=== PATIENT | male | born 1940 | race Caucasian/White ===

== ENCOUNTER 2018-08-30 08:02 | Day surgery (SDC) | payer MEDICARE, BC ==
[2018-08-30] VITALS (11 sets, daily range): BP systolic 117–137; BP diastolic 67–88; PULSE 60–82; TEMP 97.1–97.7
[~2018-08-30] VITALS: Ht 185.5 cm; Wt 92.2 kg
[~2018-08-30 08:02] MED LIST: CEPHALEXIN500 M1 PO; ELIQUIS 2.5 PO; ELIQUIS 5MG PO; FLOMAX 0.40.4 MG/CAP PO
[2018-08-30] MEDS ORDERED: MULTI VITAMINS1 TAB PO (08:51)
[2018-08-30] MEDS ORDERED: TRIAMCINOLONE A15 GM TP (08:52)
[2018-08-30 08:59] LABS: HEMOGLOBIN 12.6 g/dl (13.5-18.0); MEAN CELL VOLUME 94 fl (80.0-100.0); MEAN CORPUSCULAR HEMOGLOBIN 29 pg (27.0-31.0); MEAN CORPUSCULAR HGB CONC 31 g/dl (33.0-37.0); MEAN PLATELET VOLUME 10.3 fl (7.4-10.4); PLATELET COUNT 88 K/mm3 (130-400); RED BLOOD COUNT 4.35 M/mm3 (4.20-5.60); REDCELL DISTRIBUTION WIDTH-CV 21.2 % (11.5-14.5)
[2018-08-30 09:11] LABS: INR 1.1 (0.8-3.0); PROTHROMBIN TIME 12.8 SECONDS (9.7-12.8)
[2018-08-30 09:14] LABS: CALCIUM 9.1 mg/dL (8.4-10.2); CREATININE, serum 0.88 mg/dL (0.66-1.25); POTASSIUM 4.2 mmol/L (3.4-5.0)
[2018-08-30] MEDS ORDERED: ENTRESTO 24 MG1 EACH PO (13:00)
[2018-08-30] MEDS ORDERED: COREG 3.123.125 MG/T PO (13:01)
== END 2018-08-30 17:12 | disposition home or self-care (01) ==
LOC: COL.CAR 08:02
PROVIDERS: Internal Medicine Cardiovascular Disease
DX: I42.8 Other cardiomyopathies (principal); I48.2 Chronic atrial fibrillation; I08.1 Rheumatic disorders of both mitral and tricuspid valves; K21.9 Gastro-esophageal reflux disease without esophagitis; N40.1 Benign prostatic hyperplasia with lower urinary tract symptoms; G47.33 Obstructive sleep apnea (adult) (pediatric); E78.00 Pure hypercholesterolemia, unspecified; M19.90 Unspecified osteoarthritis, unspecified site; I49.3 Ventricular premature depolarization; Z90.49 Acquired absence of other specified parts of digestive tract; Z79.01 Long term (current) use of anticoagulants; Z95.0 Presence of cardiac pacemaker
CPT/HCPCS: J1644; J2250; J3010; Q9967

== ENCOUNTER 2019-01-02 08:26 | Inpatient (IN) | payer MEDICARE, BC ==
[2019-01-02] VITALS (10 sets, daily range): BP systolic 90–120; BP diastolic 50–78; PULSE 48–140; TEMP 97.5–98
[~2019-01-02] VITALS: Ht 185.5 cm; Wt 93.8 kg
--- NOTE | 2019-01-02 01:10 | NUR ---
PT CALLED STATED THAT NORCO HADNT HELPED AT ALL AND NEEDED SOMETHING ELSE FOR PAIN. TYLENOL PROVIDED. AREA APPEARANCE STILL THE SAME. DOES HAVE ALOT OF NOTED SWELLING TO AREA AND MINAMAL BRIUSING. PT AND STATED THAT THEY THOUGHT THAT THE DRESSING WAS TOO TIGHT. THIS NURSE LIFTED UP DRESSING, AREA SCABBED AND NO NOTED CURRENT BLEEDING TO SITE. REASSURE PT THAT AREA LOOKED GOOD, REAPPLIED DRESSING.
[~2019-01-02 08:26] MED LIST changes: +COREG 3.123.125 MG/T PO; +ENTRESTO 24 MG1 EACH PO; +MULTI VITAMINS1 TAB PO; +TRIAMCINOLONE A15 GM TP
[2019-01-02 09:21] LABS: HEMATOCRIT 42.7 % (42.0-52.0); HEMOGLOBIN 13.2 g/dl (13.5-18.0); MEAN CELL VOLUME 94 fl (80.0-100.0); MEAN CORPUSCULAR HEMOGLOBIN 29 pg (27.0-31.0); MEAN CORPUSCULAR HGB CONC 31 g/dl (33.0-37.0); MEAN PLATELET VOLUME 8.7 fl (7.4-10.4); PLATELET COUNT 110 K/mm3 (130-400); RED BLOOD COUNT 4.54 M/mm3 (4.20-5.60)
[2019-01-02] MEDS ORDERED: COREG 3.123.125 MG/T PO (09:23)
[2019-01-02] MEDS ORDERED: PREDNISONE10 MG PO (09:25)
[2019-01-02 09:29] LABS: PROTHROMBIN TIME 11.4 SECONDS (9.7-12.8)
[2019-01-02 09:33] LABS: CALCIUM 8.7 mg/dL (8.4-10.2); CREATININE, serum 0.82 (0.66-1.25); POTASSIUM 4.2 mmol/L (3.4-5.0)
[2019-01-02 09:34] LABS: REDCELL DISTRIBUTION WIDTH-CV 22.9 % (11.5-14.5)
--- NOTE | 2019-01-02 14:15 | NUR ---
Received report from catheter builder.
--- NOTE | 2019-01-02 14:31 | NUR ---
Received pt to floor. Vital signs stable. Breathing even and unlabored. Pt is alert and oriented, sleepy, but easily aroused. Dressing is clean dry and intact. Denies any pain at this time.
--- NOTE | 2019-01-02 15:39 | NUR ---
Pt lying in bed, awakens to verbal stimuli. Breathing even and unlabored, denies shortness of breath, all lung graves clear. Radial and pedal pulses are strong and easily palpable. Steady gate, no weakness noted. Hand corrections cadet are equal and strong. Denies any pain at this time. Assessment completed. Post op vitals are going. All vitals are within normal limits. Call light in reach.
--- NOTE | 2019-01-02 18:21 | NUR ---
Pt sitting up in bed, waiting on food. Denies any pain at this time. Breathing is even and unlabored. Will contiue to monitor.
--- NOTE | 2019-01-02 20:00 | NUR ---
PT HAD SOME C/O PAIN, ASKED THIS NURSE AT THIS TIME IF I COULD LEAVE HIM SOME PAIN MEDS ON THE TABLE AND HE WOULD TAKE THEM DURING THE NIGHT IF HE NEEDED, THIS NURSE TOLD PT TO LET ME KNOW WHEN HE NEEDS THE PAIN MEDS AND I CAN BRING THEM IN FOR HIM.
--- NOTE | 2019-01-02 23:30 | NUR ---
PT INFORMED FIBER OPTIC SPLICER THAT HE WAS LEAVING AND HE WAS IN TOO MUCH PAIN AND THAT HIS WAS COMING TO TAKE HIM HOME. FIBER OPTIC SPLICER INFORMED THIS NURSE, THIS NURSE WENT TO ASSESS PT. PT SITTING ON EDGE OF BED WITH JEANS ON, AND GOWN. THIS NURSE CAME TO PT ROOM WITH PRN TYLENOL AND AN ICE PACK. THIS NURSE OFFERED TYLENOL AND ICE. 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 THIS NURSE CALLED DR. MACIEL AND RECIEVED AN ORDER FOR NORCO AND INFORMED PROVIDER OF PT SITUATION. THIS NURSE TOOK NORCO INTO PT ROOM AND OFFERED IT TO PATIENT. PT STATED THAT HE WOULD WAIT FOR HIS TO GET TO FACILITY BEFORE HE WANTED TO TAKE ANYTHING. THIS NURSE TOLD PT THAT I WOULD COME BACK THEN. PT CAME TO SEE PT. THIS NURSE WAS IN ANOTHER PT ROOM ASSISTING SOMEONE AND RECIEVED A CALL FROM THE DESK STATING THAT THIS PT WAS NEEDING SOMETHING FOR NAUSEA AND THE PAIN MEDICATION.
--- NOTE | 2019-01-02 23:50 | NUR ---
THIS NURSE ADMINSITERED ZOFRAN AND NORCO. PT LAYING IN BED. AT BEDSIDE REASSURING PT. ICE PACK PLACED ON INSISION SITE. DRESSING HAS QUARTER SIZED NOTED DRIED BLOOD ON IT.
[2019-01-03] VITALS (7 sets, daily range): BP systolic 92–147; BP diastolic 58–98; PULSE 57–87; TEMP 97.4–98.8
--- NOTE | 2019-01-03 03:00 | NUR ---
PT CALLED THIS NURSE AND HAD C/O CONTINUED PAIN AND IT HADNT SUBSIDED. PT AND NOT REASSURED, THIS NURSE ASKED CHARGE NURSE MARV IF SHE COULD COME TO CHECK OUT SURGICAL SITE AND HELP PROVIDE MORE REASSURANCE.
--- NOTE | 2019-01-03 06:00 | NUR ---
PT HAD C/O PAIN REMANINING, REFUSING TO PLACE ICE ON AREA, STATED IT WAS TOO MUCH PRESSURE. PAIN MEDS ADMINSITERED ABLE
[2019-01-03 07:27] LABS: HEMOGLOBIN 11.3 g/dl (13.5-18.0); INR 1.2 (0.8-3.0); MEAN CELL VOLUME 93 fl (80.0-100.0); MEAN CORPUSCULAR HEMOGLOBIN 29 pg (27.0-31.0); MEAN CORPUSCULAR HGB CONC 32 g/dl (33.0-37.0); MEAN PLATELET VOLUME 10.1 fl (7.4-10.4); PLATELET COUNT 89 K/mm3 (130-400); PROTHROMBIN TIME 13.8 SECONDS (9.7-12.8); RED BLOOD COUNT 3.84 M/mm3 (4.20-5.60); REDCELL DISTRIBUTION WIDTH-CV 22.5 % (11.5-14.5)
[2019-01-03 07:29] LABS: HEMATOCRIT 35.7 % (42.0-52.0)
[2019-01-03 07:31] LABS: CALCIUM 8.4 mg/dL (8.4-10.2); CREATININE, serum 0.72 (0.66-1.25); POTASSIUM 4.4 mmol/L (3.4-5.0)
--- NOTE | 2019-01-03 07:45 | NUR ---
Pt lying in bed complaining of pain to left chest, dull ache of 8 on scale 0-10. Edema noted and small quarter size drainage to dressing. Gave pt pain medication and ice. Breahting is even and unlabored, no shortness of breath noted. Breath sounds clear. Completed morning assessment. Will continue to monitor. Call light in reach.
[2019-01-03 07:59] LABS: BAND 16 % (0-10); EOSINOPHIL 4 % (0-4); LYMPHOCYTE 13 % (20.0-51.0); METAMYELOCYTE 3 % (0-0); NEUTROPHILS 58 % (42.0-75.2); PLATELET ESTIMATE DECREASED (NORMAL)
--- NOTE | 2019-01-03 08:54 | NUR ---
ANIBAL met with the patient and patient's , Liana, to discuss discharge plan. The patient lives in [place] with his . He reports independence with ADLs and does not use any DME. The patient's PCP is Dr. Antwan Cho and he receives his medications through [facility] or the [facility] in [place]. He reports no difficulties obtaining his meds. The patient does not have advanced directives in EMR, but he states that he does have them completed and that they are at home. The patient plans to return home with his upon discharge. No additional needs at this time.
--- NOTE | 2019-01-03 11:48 | NUR ---
Pt sitting up in bed complaining of pain of 4 on scale 0-10 requested norco, one tab given. Edema still noted but seems to be decreasing. No new drainage on dressing noted.
--- NOTE | 2019-01-03 12:09 | NUR ---
Initial visit; Patient and his thanked Compensation Specialist for looking in on him and offering encouragement and spiritual care.
--- NOTE | 2019-01-03 13:58 | NUR ---
ANIBAL irvin met with the patient, his Liana, and his sister and brother in law to discuss discharge planning. The patient lives with his in [place]. The patient reports independence with ADLs and has no DME. The patients PCP is Dr. Antwan Cho and he gets his medications from [facility] in [place]. The patient reports no difficulties obtaining his medications. The patient does not have DPOA-HC in EMR but reports they have one completed at home. The patient plans to return home with his upon discharge. No additional needs at this time.
--- NOTE | 2019-01-03 15:48 | NUR ---
Pt complaining of pain on scale 5 out of 0-10. Will get pt medication. Bandage still has small quarter size drainage. No new swelling noted. Pt has ice at bedside for use. Call light in reach.
--- NOTE | 2019-01-03 17:50 | NUR ---
Pt sitting in bed, complaining of pain of 5 on scale 0-10. Let pt know Dr. Vang gave orders for Fentanyl. Pt was hesitant, explained it was small dose. Will follow up with night nurse to administer. No other needs at this time. Call light in reach.
--- NOTE | 2019-01-03 18:54 | NUR ---
Pt in bed, signed consent for lead revision tomorrow. Hand off report given to Renetta AGUILAR.
[2019-01-04] VITALS (13 sets, daily range): BP systolic 95–126; BP diastolic 46–95; PULSE 60–88; TEMP 97.5–97.9
--- NOTE | 2019-01-04 01:18 | NUR ---
PT HAD C/O PAIN AT BEDTIME THIS NOC. ASKED PT IF HE WANTED THE FENTANYL THIS NOC. PT REFUSED. PROVIDED PT WITH ICE TO AREA AND TYLENOL. PT STATED THAT HE VOMITTED UP THE PAIN MEDS. THIS NURSE GAVE DOSE PRN PAIN MEDS AT A LATER HOUR. REOFFERED THE FENTANYL, PT STILL REFUSED.
[2019-01-04 06:21] LABS: HEMOGLOBIN 10.5 g/dl (13.5-18.0); MEAN CELL VOLUME 95 fl (80.0-100.0); MEAN CORPUSCULAR HEMOGLOBIN 29 pg (27.0-31.0); MEAN CORPUSCULAR HGB CONC 31 g/dl (33.0-37.0); PLATELET COUNT 74 K/mm3 (130-400); RED BLOOD COUNT 3.61 M/mm3 (4.20-5.60); REDCELL DISTRIBUTION WIDTH-CV 22.5 % (11.5-14.5)
[2019-01-04 06:23] LABS: HEMATOCRIT 34.2 % (42.0-52.0)
[2019-01-04 06:25] LABS: INR 1.2 (0.8-3.0); PROTHROMBIN TIME 13.6 SECONDS (9.7-12.8)
--- NOTE | 2019-01-04 06:27 | NUR ---
PT DIDNT CALL FOR MORE PAIN MEDS THIS NOC. WILL CHECK IN ON PATIENT AT SHIFT CHANGE.
[2019-01-04 06:31] LABS: CALCIUM 8.6 mg/dL (8.4-10.2); CREATININE, serum 0.71 (0.66-1.25); POTASSIUM 4.3 mmol/L (3.4-5.0)
[2019-01-04 07:24] LABS: BAND 8 % (0-10); LYMPHOCYTE 13 % (20.0-51.0); NEUTROPHILS 64 % (42.0-75.2)
[2019-01-04 07:25] LABS: HYPOCHROMIA 2+; PLATELET ESTIMATE DECREASED (NORMAL)
--- NOTE | 2019-01-04 07:33 | NUR ---
Received report from off going shift. Patient is upset, stating he is never coming back to this hospital again as no one knows what they are doing and can't manage to control patients pain. Was informed that he had norco and fentanyl available and he stated he is not having people who are ignorant inject that type of medication into his veins. He also reported that he has thrown up his last dose of norco. I offer for him to try a dose of zofran prior to taking the norco and did let him know this would go through the IV. He did agree to this and stated he wanted to wait 30 minutes after receiving the medication before taking the norco. He also stated he will not be taking any of his morning medications until after his procedure and he speaks with cardiology. Did offer ice pack to the incision site and he agreed. Patient is noted to have bruising to his bicep and has also been moving arm out to the side, was encouraged to leave arm in a resting position. He said Dr. Millan told him that he could move his arm around as long as it didnt go above his head. Was advised to keep the arm in a resting position. He stated the same thing regarding moving his arm around. Call light is within reach.
--- NOTE | 2019-01-04 08:20 | NUR ---
Went to patients room to reassess pain after receiving pain medication. Stated that taking the zofran with the norco did help however the norco was ineffective. He again states that he does not understand why we can't manage his pain. I again offered the PRN fentanyl and he again declined. He also stated he demands to see the digital marketing intern before his procedure as he feels he is unable to go through the procedure without something happening. I did contact Dr. Vang and notify him of patient's complaints and concerns and that he would want to see him prior to procedure. He will visit with patient prior.
--- NOTE | 2019-01-04 16:15 | NUR ---
ALL MEDICATION GIVEN VORB WITH MD. SEE MERGE FOR ALL MEDICATION ADMIN TIMES. SEE MERGE FOR ALL RASS ASSESSMENTS DURING AND POST PROCEDURE.
--- NOTE | 2019-01-04 20:09 | NUR ---
PT IN BED WITH HOB ELEVATED TO 40 DEGREE ANGLE. LEFT ARM IN SLING AND LEFT UPPER CHEST HAS DRSG THAT IS C/D/I. HAS PAIN OF 2/10 THAT IS DULL/ACHING, BUT SAID THAT IT IS TOLERABLE AND MUCH BETTER. AT BEDSIDE, CALL LIGHT WITHIN REACH.
--- NOTE | 2019-01-04 22:39 | NUR ---
PT WAS ASSISTED UP TO BATHROOM. PT HAS MULTIPLE SCABS ON TORSE. PT ADVISES THAT IT IS FROM AN ALLERGIC REACTION TO SOME MEDICATION THAT HE DOES NOT KNOW WHICH ONE. PT ASSISTED BACK TO BED. NO FURTHER NEEDS AT THIS TIME, CALL LIGHT WITHIN REACH.
[2019-01-05 03:21] VITALS: BP 97/46; PULSE 71; TEMP 98.2
--- NOTE | 2019-01-05 03:23 | NUR ---
UNEVENTFUL NIGHT. PT SLEEPING/RESTING WITH NO S/S OF PAIN OR DISCOMFORT NOTED. CALL LIGHT WITHIN REACH.
--- NOTE | 2019-01-05 05:22 | NUR ---
PT RESTING/SLEEPING WITH HOB ELEVATED TO ABOUT 15 DEGREE ANGLE. PT HAS PAIN ABOUT A 2/10 BUT GREATER WITH MOVEMENT, GAVE NORCO FOR PAIN. CALL LIGHT WITHIN REACH.
[2019-01-05 06:09] LABS: HEMATOCRIT 28.4 % (42.0-52.0); HEMOGLOBIN 8.7 g/dl (13.5-18.0); MEAN CELL VOLUME 96 fl (80.0-100.0); MEAN CORPUSCULAR HEMOGLOBIN 29 pg (27.0-31.0); MEAN CORPUSCULAR HGB CONC 31 g/dl (33.0-37.0); MEAN PLATELET VOLUME 11.2 fl (7.4-10.4); PLATELET COUNT 57 K/mm3 (130-400); RED BLOOD COUNT 2.95 M/mm3 (4.20-5.60); REDCELL DISTRIBUTION WIDTH-CV 22.8 % (11.5-14.5)
[2019-01-05 06:11] LABS: CALCIUM 8.2 mg/dL (8.4-10.2); CREATININE, serum 0.74 (0.66-1.25)
[2019-01-05 06:22] LABS: INR 1.2 (0.8-3.0); PROTHROMBIN TIME 13.2 SECONDS (9.7-12.8)
--- NOTE | 2019-01-05 06:38 | NUR ---
GAVE PT ICE FOR LEFT CHEST AREA AND PT DECLINED TO USE THE ICE.
[2019-01-05 06:56] LABS: HYPOCHROMIA 1+; LYMPHOCYTE 8 % (20.0-51.0); NEUTROPHILS 66 % (42.0-75.2); PLATELET ESTIMATE DECREASED (NORMAL)
[2019-01-05 06:57] LABS: ANISOCYTOSIS 1+
[2019-01-05 07:09] VITALS: BP 110/61; PULSE 70; TEMP 98.1
[2019-01-05] MEDS ORDERED: BETAPACE 80MG80 MG PO (10:20)
[2019-01-05] MEDS ORDERED: CEPHALEXIN500 M1 PO (10:50)
[2019-01-05] MEDS ORDERED: CLEOCIN HCL300 MG PO (12:18)
== END 2019-01-05 12:30 | disposition home or self-care (01) | DRG 227 ==
LOC: COL.CAR 08:26 → MEDICAL 14:38
PROVIDERS: ADMIT Internal Medicine Cardiovascular Disease
PROC: 0JH609Z Insertion of Cardiac Resynchronization Defibrillator Pulse Generator into Chest Subcutaneous Tissue and Fascia, Open Approach (ICD-10-PCS; principal; 2019-01-02)
PROC: 02HK3KZ Insertion of Defibrillator Lead into Right Ventricle, Percutaneous Approach (ICD-10-PCS; 2019-01-02)
PROC: 02H63KZ Insertion of Defibrillator Lead into Right Atrium, Percutaneous Approach (ICD-10-PCS; 2019-01-02)
PROC: 0JPT0PZ Removal of Cardiac Rhythm Related Device from Trunk Subcutaneous Tissue and Fascia, Open Approach (ICD-10-PCS; 2019-01-02)
PROC: 02PA0MZ Removal of Cardiac Lead from Heart, Open Approach (ICD-10-PCS; 2019-01-04)
PROC: 02HL3JZ Insertion of Pacemaker Lead into Left Ventricle, Percutaneous Approach (ICD-10-PCS; 2019-01-04)
DX: I48.1 Persistent atrial fibrillation (principal); T82.120A Displacement of cardiac electrode, initial encounter; I97.630 Postprocedural hematoma of a circulatory system organ or structure following a cardiac catheterization; I42.8 Other cardiomyopathies; Z79.01 Long term (current) use of anticoagulants; N40.0 Benign prostatic hyperplasia without lower urinary tract symptoms; G47.33 Obstructive sleep apnea (adult) (pediatric); Z95.0 Presence of cardiac pacemaker
CPT/HCPCS: C1769; C1777; C1882; C1894; C1898; C1900; J0690; J2250; J2405; J3010; J7030; J7512; Q9967

== ENCOUNTER 2019-01-06 12:31 | Emergency (ER) | payer MEDICARE, BC ==
[~2019-01-06] VITALS: Ht 185.4 cm; Wt 90.9 kg
[~2019-01-06 12:31] MED LIST changes: +BETAPACE 80MG80 MG PO; +CLEOCIN HCL300 MG PO; +PREDNISONE10 MG PO
[2019-01-06 12:37] VITALS: TEMP 97.1
[2019-01-06 13:23] LABS: MEAN CELL VOLUME 96 fl (80.0-100.0); MEAN CORPUSCULAR HGB CONC 30 g/dl (33.0-37.0); MEAN PLATELET VOLUME 10.7 fl (7.4-10.4); PLATELET COUNT 61 K/mm3 (130-400); RED BLOOD COUNT 2.81 M/mm3 (4.20-5.60); REDCELL DISTRIBUTION WIDTH-CV 22.4 % (11.5-14.5)
[2019-01-06 13:24] LABS: HEMOGLOBIN 8.2 g/dl (13.5-18.0); MEAN CORPUSCULAR HEMOGLOBIN 29 pg (27.0-31.0)
[2019-01-06 13:32] LABS: ALBUMIN 3.3 gm/dL (3.5-5.0); BAND 17 % (0-10); CALCIUM 8.9 mg/dL (8.4-10.2); CREATININE, serum 0.75 (0.66-1.25); LYMPHOCYTE 15 % (20.0-51.0); NEUTROPHILS 55 % (42.0-75.2); PLATELET ESTIMATE DECREASED (NORMAL); POTASSIUM 4.4 mmol/L (3.4-5.0); TOTAL PROTEIN 6.6 gm/dL (6.4-8.2)
[2019-01-06 13:33] LABS: ANISOCYTOSIS 2+; HYPOCHROMIA 1+
[2019-01-06 13:43] LABS: C-REACTIVE PROTEIN 17.7 mg/dL (0.0-0.9)
[2019-01-06 13:47] LABS: COLLECTION METHOD CLEAN CATCH
[2019-01-06 13:59] LABS: MUCOUS Present /lpf; PH 5 (5-8); SQUAMOUS EPITHELIAL 0-2 /hpf; URINE APPEARANCE Hazy; URINE BACTERIA None Seen /hpf; URINE BILIRUBIN Negative (NEGATIVE); URINE BLOOD Negative (NEGATIVE); URINE COLOR Amber; URINE GLUCOSE Negative (NEGATIVE); URINE KETONE Negative (NEGATIVE); URINE LEUKOCYTE ESTERASE Negative (NEGATIVE); URINE NITRATE Negative (NEGATIVE); URINE PROTEIN(semi-quant) 1+ (NEGATIVE); URINE RBC 0-2 /hpf; URINE UROBILINOGEN Negative (NEGATIVE)
[2019-01-06 15:21] VITALS: BP 134/63; PULSE 67
== END 2019-01-06 15:23 | disposition home or self-care (01) ==
LOC: COL.ER 12:31
PROVIDERS: Family Medicine
DX: E87.1 Hypo-osmolality and hyponatremia (principal); E86.0 Dehydration; Z95.0 Presence of cardiac pacemaker
CPT/HCPCS: J7030

== ENCOUNTER 2019-04-02 09:45 | Day surgery (SDC) | payer MEDICARE, BC ==
[~2019-04-02] VITALS: Ht 185.5 cm; Wt 95.0 kg
[2019-04-02] VITALS (7 sets, daily range): BP systolic 112–124; BP diastolic 70–83; PULSE 70–78; TEMP 98–98.3
[2019-04-02 10:40] LABS: INR 1.4 (0.8-3.0)
[2019-04-02 10:41] LABS: POTASSIUM 4.3 mmol/L (3.4-5.0)
[2019-04-02] MEDS ORDERED: BETAPACE 120MG120 MG PO (10:43)
[2019-04-02] MEDS ORDERED: ATACAND4 MG PO (10:45)
[2019-04-02] MEDS ORDERED: ZILRETTA32 MG TP (10:46)
[2019-04-02] MEDS ORDERED: ANUSOL HC CREAM30 GM TP (10:46)
[2019-04-02] MEDS ORDERED: ATARAX 25MG25 MG/TAB PO (10:47)
[2019-04-02] MEDS ORDERED: TYLENOL PM EXTR1 TA1 PO (10:48)
[2019-04-02] MEDS ORDERED: BENADRYL25 M2 PO (10:48)
[2019-04-02 11:16] LABS: THYROID STIMULATING HORMONE 1.94 uIU/mL (0.465-4.680)
--- NOTE | 2019-04-02 12:15 | NUR ---
INT discontinued intact. VSS. Discharge instructions given. transferred to private car by jaspreet
== END 2019-04-02 12:25 | disposition home or self-care (01) ==
LOC: COL.CAR 09:45
PROVIDERS: Internal Medicine Cardiovascular Disease
DX: I48.2 Chronic atrial fibrillation (principal); I42.9 Cardiomyopathy, unspecified; I08.1 Rheumatic disorders of both mitral and tricuspid valves; K21.9 Gastro-esophageal reflux disease without esophagitis; G47.33 Obstructive sleep apnea (adult) (pediatric); N40.0 Benign prostatic hyperplasia without lower urinary tract symptoms; Z95.810 Presence of automatic (implantable) cardiac defibrillator; Z79.01 Long term (current) use of anticoagulants; Z79.899 Other long term (current) drug therapy; Z83.42 Family history of familial hypercholesterolemia
CPT/HCPCS: J2704; J7030